=== PATIENT | male | born 1980 | race Two or more races ===

== ENCOUNTER 2023-09-29 13:52 | Emergency (ER) | payer MEDICAID, OTHER ==
[~2023-09-29] VITALS: Ht 175.3 cm; Wt 103.9 kg
[2023-09-29] MEDS: KETOROLAC TROMETH 60MG/2ML VIAL IM ONE (14:23)
[2023-09-29] MEDS: TETANUS-DIPTH-ACEL PERTUSSIS 0.5ML SYR Tdap IM ONE (14:23)
[2023-09-29 14:26] VITALS: BP 131/87; PULSE 90; RESP 16; TEMP 97.6; O2SAT 98
[2023-09-29] MEDS ORDERED: ACET500T58 PO (14:32)
[2023-09-29] MEDS ORDERED: IBUP-1456 PO (14:32)
[2023-09-29] MEDS ORDERED: [UNRECOGNIZED DRUG - CODE] EX (14:32)
[2023-09-29 14:40] LABS: Urine Bacteria None Seen /hpf (None Seen)
[2023-09-29 14:48] LABS: Urine Blood Negative /uL (Negative); Urine Clarity Clear (Clear); Urine Color Light-Yellow (Yellow); Urine Protein, UAD Negative (Negative); Urine Specific Gravity 1.019 (1.001-1.035); Urine Urobilinogen Normal (Negative); Urine WBC 1 /hpf (0 - 3)
== END 2023-09-29 15:40 | disposition home or self-care (01) ==
LOC: ER 13:52
DX: B48.8 Other specified mycoses (principal); Z79.899 Other long term (current) drug therapy
CPT/HCPCS: 81001; 90471; 90715; 96372; 99284; J1885